=== PATIENT | male | born 1975 | race Caucasian/White ===

== ENCOUNTER → 2017-11-12 08:58 | Outpatient (CLI) | payer OTHER, SELFPAY ==
--- NOTE | 2017-11-12 | DI.MRI.S_ITS ---
PROCEDURE: MR KNEE LT WO CON INDICATIONS: INTERNAL DERANGEMENT OF LEFT KNEE TECHNIQUE: Noncontrast sagittal PD fast spin echo and T2 fast spin echo with fat saturation, sagittal 3-D FLASH with fat saturation; coronal T1 spin echo and PD fast spin echo with fat saturation, and axial PD fast spin echo with fat saturation through the knee. [facility], MR KNEE LEFT WITHOUT CONTRAST, 03/13/2017, 16:30. FINDINGS: Image quality: Excellent. Menisci: Linear high signal intensity traverses the medial meniscal body and posterior horn, demonstrating inferior articular surface extension, as before, indicating horizontal tearing. This is increased in prominence compared to prior examination. There is radial tearing of the posterior horn medial meniscus at the meniscal root ligament insertion site, as before. The lateral meniscus is intact. Cruciate ligaments: Previously seen partial thickness tearing of the anterior cruciate ligament has progressed, and is now high-grade. There is new, moderate T2 signal elevation within the posterior cruciate ligament, indicating partial thickness tearing. Medial structures: There is new fluid signal intensity within and surrounding the femoral insertion of the medial collateral ligament. Small amount of fluid deep to the medial collateral ligament is present. There is new moderate T2 signal elevation within the semimembranosus at the tibial insertion site. Visualized portions of the pes anserinus tendons appear normal. No abnormal bursal fluid. Lateral structures: The lateral collateral ligament, long and short heads of the biceps femoris tendon appear intact. The popliteus tendon appears normal. There is decreased, mild T2 signal elevation within the popliteus at the musculotendinous junction. There is new moderate T2 signal elevation within the medial head of the gastrocnemius at the musculotendinous junction extending to the femoral origin. Iliotibial band appears normal. Anterior structures: The quadriceps and patellar tendons appear intact. Mild T2 signal elevation within the patellar tendon at the patellar insertion. Patellar alignment is normal. No femoral trochlear dysplasia or ventral trochlear prominence. No edema in the infrapatellar fat pad. Bones and cartilage: No bone marrow contusions or fractures. Mild tricompartmental periarticular osteophyte formation is present. No change in m mild diffuse articular cartilage loss overlying the weightbearing aspects of the medial femoral condyle and medial tibial plateau. Joint space: There is a moderate knee joint effusion and a small Flores's cyst. Normal appearing synovial plicae are incidentally noted. IMPRESSION: 1. Increased prominence of previously seen medial meniscal tearing. 2. Progressive, high-grade partial-thickness anterior cruciate ligament tearing. 3. New partial-thickness posterior cruciate ligament tearing. 4. New insertional tendinitis of the semimembranosus. 5. New partial-thickness tearing of the medial head of the gastrocnemius. 6. Mild patellar tendinitis. 7. Knee joint effusion and Flores's cyst. 8. New high-grade partial-thickness tearing of the medial collateral ligament. New mild medial collateral ligament bursitis. 9. Resolving popliteus strain. Dictated by: Maxx Riggins M.D. on 11/12/2017 at 10:15 Approved by: Maxx Riggins M.D. on 11/12/2017 at 10:30
== END ==
PROVIDERS: PCP Orthopaedic Surgery; Visit Provider Orthopaedic Surgery
DX: S83.242A Other tear of medial meniscus, current injury, left knee, initial encounter (principal); S83.512A Sprain of anterior cruciate ligament of left knee, initial encounter; S83.522A Sprain of posterior cruciate ligament of left knee, initial encounter; S83.412A Sprain of medial collateral ligament of left knee, initial encounter; S86.812A Strain of other muscle(s) and tendon(s) at lower leg level, left leg, initial encounter; M76.822 Posterior tibial tendinitis, left leg
CPT/HCPCS: 73721

== ENCOUNTER → 2018-01-28 08:33 | Outpatient (CLI) | payer OTHER, SELFPAY ==
[2018-01-28 09:50] LABS: BUN Creatinine Ratio 13.3 (6-22); Blood Urea Nitrogen 12 mg/dL (9-20); Calcium 9.7 mg/dL (8.4-10.2); Carbon Dioxide 27 mmol/L (22-32); Chloride 100 mmol/L (98-107); Cholesterol 175 mg/dL (140-199); Estimated Glomerular Filt Rate > 60.0 mL/min (>60); Glucose 109 mg/dL (70-100); HDL Cholesterol 47 mg/dL (40-60); HEMOLYSIS 25 (0-50); LDL Cholesterol Calculated 87 mg/dL (<100); Potassium 4.3 mmol/L (3.4-5.1); Sodium 140 mmol/L (137-145); Triglycerides 203 mg/dL (35-150)
== END ==
PROVIDERS: Family Provider Family Medicine; PCP Family Medicine; Visit Provider Physician Assistant
DX: R03.0 Elevated blood-pressure reading, without diagnosis of hypertension (principal); Z13.220 Encounter for screening for lipoid disorders; Z13.6 Encounter for screening for cardiovascular disorders
CPT/HCPCS: 36415; 80048; 80061

== ENCOUNTER → 2021-03-07 18:51 | Outpatient (CLI) | payer OTHER, SELFPAY ==
--- NOTE | 2021-03-07 18:53 | DI.RAD.S_ITS ---
PROCEDURE: XR HAND RT MIN 3V INDICATIONS: wrist pain TECHNIQUE: 3 views of the hand(s) acquired. COMPARISON: None. FINDINGS: Bones: No fractures or dislocations. Carpal bones are normally aligned. No suspicious bony lesions. Soft tissues: No suspicious soft tissue calcifications. Mild soft tissue edema is present surrounding the 1st metacarpal. IMPRESSION: No visualized acute fracture or dislocation. However, if clinical concern and/or pain persist, short interval imaging followup in 7-10 days is recommended, as occult injury cannot be definitively excluded. Soft tissue edema is present surrounding the 1st metacarpal. Recommend correlation potential infection or inflammation. Dictated by: Darcy Ch M.D. on 03/08/2021 at 11:39 Approved by: Darcy Ch M.D. on 03/08/2021 at 11:39
--- NOTE | 2021-03-07 18:53 | DI.RAD.S_ITS ---
PROCEDURE: XR WRIST RT MIN 3V INDICATIONS: wrist pain TECHNIQUE: 4 views of the wrist were acquired. COMPARISON: [facility], , XR HAND RT MIN 3V, 03/07/2021, 18:44. FINDINGS: Bones: No fractures or dislocations. No suspicious bony lesions. Scaphoid view: No visualized fracture. Soft tissues: No suspicious soft tissue calcifications. Mild soft tissue edema is present surrounding the 1st metacarpal. IMPRESSION: No visualized acute fracture or dislocation. However, if clinical concern and/or pain persist, short interval imaging followup in 7-10 days is recommended, as occult injury cannot be definitively excluded. Soft tissue edema surrounding the 1st metacarpal. Recommend correlation to infection or inflammation. Dictated by: Darcy Ch M.D. on 03/08/2021 at 11:39 Approved by: Darcy Ch M.D. on 03/08/2021 at 11:40
== END ==
PROVIDERS: Family Provider Family Medicine; PCP Family Medicine; Referring Provider Nurse Practitioner Family; Visit Provider Nurse Practitioner Family
DX: S69.91XA Unspecified injury of right wrist, hand and finger(s), initial encounter (principal); M79.89 Other specified soft tissue disorders; X58.XXXA Exposure to other specified factors, initial encounter
CPT/HCPCS: 73110; 73130